=== PATIENT | female | born 1955 | race Caucasian/White ===

== ENCOUNTER 2017-08-16 15:43 | Emergency (ER) | END 2017-08-16 19:27 | disposition home or self-care (01) ==

== ENCOUNTER 2018-12-15 17:45 | Emergency (ER) | payer OTHER ==
[~2018-12-15] VITALS: Ht 160 cm; Wt 62.7 kg
[~2018-12-15 17:45] MED LIST: AZIT250T PO; CEPH-443 PO; LORA-441; OMEP20CA16; PROM5SYR2 PO
[2018-12-15 18:16] VITALS: BP 159/83; PULSE 77; RESP 16; Ht 160 cm; Wt 62.7 kg
[2018-12-15] MEDS ORDERED: MED4DP PO (20:13)
[2018-12-15] MEDS ORDERED: AMOX500C2 PO (20:13)
[2018-12-15] MEDS ORDERED: PHEN177S43 MT (20:13)
[2018-12-15] MEDS ORDERED: IBUP-1561 PO (20:13)
--- NOTE | 2018-12-15 21:04 | ERD ---
ER Documentation Chief Complaint Chief Complaint st X 4 DAYS HPI 63-year-old female presenting to the emergency department complaining of intermittent sore throat for the past 4 days as well as right ear pain. Symptoms are constant and worse at night. She denies any fevers or cough. She tried [id number] medication with some relief. ROS All systems reviewed and are negative except as per history of present illness. Medications Home Meds Active Scripts Methylprednisolone* (Medrol* DOSE PACK) 4 Mg/Dose-Pack Tab.ds.pk, 4 MG PO . DIRECTED, #1 PACKET Prov:ROBBIE AYALA PA-C 12/15/18 Ibuprofen* (Motrin*) 400 Mg Tab, 400 MG PO Q6, #30 TAB Prov:ROBBIE AYALA PA-C 12/15/18 Phenol* (Chloraseptic* [place]) 177 Ml [place].pump, 2 SPRAY MT Q2H PRN for SORE THROAT, #1 BOTTLE Prov:ROBBIE AYALA PA-C 12/15/18 Amoxicillin* (Amoxicillin*) 500 Mg Cap, 500 MG PO TID for 10 Days, CAP Prov:ROBBIE AYALA PA-C 12/15/18 Cephalexin* (Keflex*) 500 Mg Capsule, 500 MG PO QID for 7 Days, CAP Prov:NISREEN CHEN PA-C 08/16/17 Promethazine HCl/Codeine (Prometh-Codein 6.25-10 mg/5 ml) 5 Ml Syrup, 5 ML PO Q8, #4 OZ Prov:REGINALDO FONG PA-C 03/17/16 Azithromycin* (Zithromax*) 250 Mg Tablet, 250 MG PO .GregorioPACK DIRECTED, #6 TAB TAKE 500 MG (2 TABS) THE FIRST DAY THEN 250 MG (1 TAB) DAYS 2-5 Prov:REGINALDO FONG PA-C 03/17/16 Reported Medications Lorazepam* (Ativan*) 0.5 Mg Tablet, 1 MG, #30 11/24/15 Omeprazole* (Omeprazole*) 20 Mg Capsule., #30 11/24/15 Allergies Allergies: Coded Allergies: No Known Allergy (Unverified , 08/16/17) PMhx/Soc History of Surgery: Yes (DENTAL IMPLANTS, R HAND/1ST DIGIT LACERATION) Anesthesia Reaction: No Hx Neurological Disorder: No Hx Respiratory Disorders: No Hx Cardiac Disorders: No Hx Psychiatric Problems: Yes (OCCASIONAL ANXIETY) Hx Miscellaneous Medical Probl: No Hx Alcohol Use: No Hx Substance Use: No Hx Tobacco Use: No Smoking Status: Never smoker FmHx Family History: No diabetes Physical Exam Vitals Vital Signs Date Temp Pulse Resp B/P (MAP) Pulse Ox O2 O2 Flow FiO2 Time Delivery Rate 12/15/18 98.4 77 16 159/83 100 18:16 (108) Physical Exam Const: No acute distress Head: Atraumatic Eyes: Normal Conjunctiva ENT: Normal External Ears, Nose and Mouth. Erythema and mild tonsillar enlargement with exudate noted on the right tonsil. Airway is patent. Right tympanic membrane is erythematous and slightly bulging. Left tympanic membrane is normal in appearance. Neck: Full range of motion. No meningismus. Anterior cervical ly mphadenopathy. Resp: Clear to auscultation bilaterally Cardio: Regular rate and rhythm, no murmurs Skin: No petechiae or rashes Ext: No cyanosis, or edema Neur: Awake and alert Psych: Normal Mood and Affect Procedures/MDM 63-year-old female presents to the emergency department with signs and symptoms most consistent with right-sided otitis media and pharyngitis. No evidence to suggest serious bacterial infection, mastoiditis, meningitis, sepsis, or other emergencies. Patient will be treated as an outpatient with prescriptions. She was given strict return precautions and she demonstrated good understanding. Patient's blood pressure was elevated (>120/80) but appears stable without evidence of hypertension emergency or urgency. The patient is to follow-up and pursue outpatient monitoring and therapy with their primary care physician within 1 week and return immediately if they have any new, worsening, or concerning symptoms. Departure Diagnosis: Primary Impression: Otitis media Additional Impression: Pharyngitis Condition: Fair Patient Instructions: Otitis Media, Abx Tx (Adult) Referrals: COMM[facility] CL[facility] YOU HAVE RECEIVED A MEDICAL SCREENING EXAM AND THE RESULTS INDICATE THAT YOU DO NOT HAVE A CONDITION THAT REQUIRES URGENT TREATMENT IN THE EMERGENCY DEPARTMENT. FURTHER EVALUATION AND TREATMENT OF YOUR CONDITION CAN WAIT UNTIL YOU ARE SEEN IN YOUR DOCTORS OFFICE WITHIN THE NEXT 1-2 DAYS. IT IS YOUR RESPONSIBILITY TO MAKE AN APPOINTMENT FOR FOLOW-UP CARE. IF YOU HAVE A PRIMARY DOCTOR --you should call your primary doctor and schedule an appointment IF YOU DO NOT HAVE A PRIMARY DOCTOR YOU CAN CALL OUR PHYSICIAN REFERRAL HOTLINE AT IF YOU CAN NOT AFFORD TO SEE A PHYSICIAN YOU CAN CHOSE FROM THE FOLLOWING FORMERLY [facility] [address] [facility] [address] [facility] [facility] [address] [facility] [address] [facility] [address] [facility] [facility]. [address] Additional Instructions: Call your primary care doctor TOMORROW for an appointment during the next 1-2 days.See the doctor sooner or return here if your condition worsens before your appointment time. ROBBIE AYALA PA-C Dec 15, 2018 21:04
== END 2018-12-15 20:27 | disposition home or self-care (01) ==
LOC: FTE 17:45
DX: H66.91 Otitis media, unspecified, right ear (principal)
CPT/HCPCS: 99283